=== PATIENT | female | born 1995 | race Caucasian/White ===

== ENCOUNTER 2018-04-10 17:52 | Inpatient (IN) | payer OTHER, SELFPAY ==
--- OUTSIDE RECORDS SUMMARY | 2018-04-10 17:54 | XMS REPORT ---
:1995 Author Organization [facility] Address [address] [place] [address] [address]. [address] [place] [address] Care Team Providers Name Role Phone Unavailable Unavailable Unavailable Problems This patient has no known problems. Allergies, Adverse Reactions, Alerts This patient has no known allergies or adverse reactions. Medications This patient has no known medications.
[2018-04-10] MEDS ORDERED: NA CHLORIDE 0.9% 1,000 ML ONE (18:59)
[2018-04-10 19:03] LABS: Absolute Lymphocytes (CBC) 2.4 K/uL (0.7-4.9); Absolute Monocytes 0.9 K/uL (0.1-1.3); Absolute Neutrophil 13.9 K/uL (1.8-8.0); Basophils % 0.3 % (0-1.3); Eosinophils % 1.4 % (0-4.4); Hematocrit 36.7 % (36.0-45.0); Lymphocytes % 13.7 % (15.3-44.8); MPV 8.2 fL (7.6-11.3); RBC Red Blood Cell Count 4.13 M/uL (3.86-4.86)
[2018-04-10] MEDS ORDERED: FENTANYL CITR 100 MCG/2 ML ONE (19:09)
[2018-04-10 19:41] LABS: BUN Blood Urea Nitrogen 9 mg/dL (7-18); Bicarbonate 25 mmol/L (21-32); Glucose Level 100 mg/dL (74-106); HCG, Quantitative 9768 mIU/mL (1-3); Potassium 3.7 mmol/L (3.5-5.1); Sodium Level 139 mmol/L (136-145)
--- NOTE | 2018-04-10 19:44 | RAD REPORT ---
EXAM DESCRIPTION: US - OB Complete - 04/10/2018 7:28 pm CLINICAL HISTORY: Vaginal bleeding, passing blood clots, , severe pain COMPARISON: None. FINDINGS: A single cephalic presenting gestation is identified. Anatomic assessment is limited by po sitioning and maternal body habitus. No cardiac abnormality identified. Heart rate is 154 BPM. No faizan tomic abnormality confirmed. measurements are as follows: BPD:4.23 Centimeters 18 weeks 6 days HC:16.06 Centimeters 18 weeks 6 days AC:14.36 Centimeters 19 weeks 5 days HL:2.92 Centimeters 19 weeks 4 days FL:3.10 Centimeters 19 weeks 4 days The estimated gestational age (EGA) is 19 weeks 2 days with an LALITO of 09/02/2018. ratios are n ormal or within acceptable limits. The placenta is grade 0, anterior fundal in location. No low-lying or placenta previa. The amniotic fluid volume is normal. Cervical canal is 2.35 cm. Internal os appears closed with no funneling. Minimal hypoechoic material in the cervical canal may be blood products. No large clot or hematoma in the cervical canal. Maternal adnexa mostly obscured. No gross abnormality seen. . IMPRESSION: 1. Single, cephalic gestation with an EGA of 19 weeks 2 days and an LALITO of the 9. 2. No abnormalities are identifiable. Anatomic assessment was limited. ratios are normal or within acceptable limits. 3. Grade 0, anterior fundal placenta with no low-lying or placenta previa. 4. Amniotic fluid volume is normal. 5. Cervical canal is 2.35 cm in length. There is probably some hemorrhagic material in the cervical c anal but no large clot. Internal os appears closed with no funneling.
[2018-04-10 19:51] LABS: Urine Blood 2+ (NEG); Urine Glucose NEGATIVE (NEG); Urine Protein NEGATIVE (NEG)
--- NOTE | 2018-04-10 21:11 | EDPHYS ---
Physician Documentation [facility] Name: Fina Jc Age: 22 yrs Sex: Female : 1995 Arrival Date: 04/10/2018 Time: 17:54 Bed 28 Private MD: None, None ED Physician Danny Montano HPI: 04/10 20:47 This 22 yrs old Female presents to ER via Ambulatory with complaints of 18 gs wks , Abdominal Cramping, Vaginal Bleeding. 20:47 The patient presents to the emergency department with abdominal pain, of the suprapubic gs area, right lower quadrant and left lower quadrant. The estimated gestational age is 18 weeks. Previous pregnancies: in previous pregnancies patient has had. Associated signs and symptoms: Pertinent positives: vaginal bleeding. The patient has not experienced similar symptoms in the past. severe intermittent lower abdominal pain feels like contractions worse than previous labor pains. mild vaginal bleeding. 20:47 no PNC. 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 - Social history:: Smoking status: Patient uses tobacco products, smokes one-half pack cigarettes per day, Patient/guardian denies using alcohol, street drugs. - Ebola Screening: : Patient negative for fever greater than or equal to 101.5 degrees Fahrenheit, and additional compatible Ebola Virus Disease symptoms Patient denies exposure to infectious person Patient denies travel to an Ebola-affected area in the 21 days before illness onset No symptoms or risks identified at this time. ROS: 20:47 All other systems are negative. gs Exam: 20:47 Head/Face: Normocephalic, atraumatic. Eyes: Pupils equal round and reactive to light, gs extra-ocular motions intact. Lids and lashes normal. Conjunctiva and sclera are non-icteric and not injected. Cornea within normal limits. Periorbital areas with no swelling, redness, or edema. ENT: Nares patent. No nasal discharge, no septal abnormalities noted. Tympanic membranes are normal and external auditory canals are clear. Oropharynx with no redness, swelling, or masses, exudates, or evidence of obstruction, uvula midline. Mucous membranes moist. Neck: Trachea midline, no thyromegaly or masses palpated, and no cervical lymphadenopathy. Supple, full range of motion without nuchal rigidity, or vertebral point tenderness. No Meningismus. Chest/axilla: Normal chest wall appearance and motion. Nontender with no deformity. No lesions are appreciated. Cardiovascular: Regular rate and rhythm with a normal S1 and S2. No gallops, murmurs, or rubs. Normal PMI, no JVD. No pulse deficits. Respiratory: Lungs have equal breath sounds bilaterally, clear to auscultation and percussion. No rales, rhonchi or wheezes noted. No increased work of breathing, no retractions or nasal flaring. 20:47 Back: No spinal tenderness. No costovertebral tenderness. Full range of motion. Skin: Warm, dry with normal turgor. Normal color with no rashes, no lesions, and no evidence of cellulitis. MS/ Extremity: Pulses equal, no cyanosis. Neurovascular intact. Full, normal range of motion. Neuro: Awake and alert, GCS 15, oriented to person, place, time, and situation. Cranial nerves II-XII grossly intact. Motor strength 5/5 in all extremities. Sensory grossly intact. Cerebellar exam normal. Normal gait. 20:47 Constitutional: The patient appears alert, awake, in obvious distress, severely distressed. 20:47 Abdomen/GI: Palpation: moderate abdominal tenderness, in the suprapubic area, right lower quadrant and left lower quadrant, rebound tenderness, is not appreciated. 20:47 : Pelvic Exam: the exam is deferred, externally dora exsanguinating bleeding. pt states has been bleeding for 2 weeks, pt in distress and will hold exam until OB-Section Beamer comes to examine pt.. Vital Signs: 18:03 BP 141 / 71; Pulse 94; Resp 16; Temp 98.2; Pulse Ox 99% on R/A; Weight 136.08 kg; ch Height 5 ft. 7 in. (170.18 cm); Pain 10/10; 19:07 BP 138 / 73; Pulse 98; Resp 19; Pulse Ox 100% on R/A; ca1 20:00 BP 113 / 78; Pulse 94; Resp 19; Pulse Ox 99% on R/A; ca1 20:45 BP 113 / 78; Pulse 112; Resp 19; Pulse Ox 97% on R/A; ca1 18:03 Body Mass Index 46.99 (136.08 kg, 170.18 cm) ch MDM: 18:48 Patient medically screened. gs 20:47 Differential diagnosis: [facility], delivery of , inevitable Ab. Data gs reviewed: vital signs, nurses notes. Response to treatment: There is no appreciated change of the patient's symptoms at this time. Physician consultation: Parminder Sanchez MD and will see patient in ED. ED course: dr sanchez was concerned about giving pt pain medication prior to having diagnosis, pt was in tremendous pain and could not get pt to have US or try to reliable exam unless gave pain medication, In view of the patients severe pain episodes, lack of severe bleeding, US results felt dr sanchez was most appropriate to do exam. 04/10 18:32 Order name: Urine Dipstick--Ancillary (enter results); Complete Time: 19:59 04/10 18:32 Order name: Urine --Ancillary (enter results); Complete Time: 19:59 04/10 18:49 Order name: Quantitative Hcg; Complete Time: 19:59 04/10 18:49 Order name: Abo/rh Typing 04/10 18:49 Order name: Basic Metabolic Panel; Complete Time: 19:59 04/10 18:49 Order name: CBC with Diff; Complete Time: 19:59 04/10 18:49 Order name: US OB Complete; Complete Time: 19:59 04/10 18:49 Order name: IV Saline Lock; Complete Time: 18:51 04/10 18:49 Order name: Labs collected and sent; Complete Time: 18:51 04/10 20:22 Order name: ABO/RH no charge; Complete Time: 20:31 EDMS 04/10 21:12 Order name: Type and Screen EDMD 04/10 18:49 Order name: NPO; Complete Time: 18:51 04/10 18:49 Order name: Urine Dipstick-Ancillary (obtain specimen); Complete Time: 18:51 gs Administered Medications: 18:50 Drug: NS 0.9% 1000 ml Route: IV; Rate: 125 ml/hr; Site: left antecubital; ca1 21:00 Follow up: IV Status: Infusion continued upon admission ca1 19:35 Drug: fentaNYL (PF) 25 mcg Route: IVP; Site: left antecubital; ca1 20:05 Follow up: Response: No adverse reaction; Pain is unchanged, physician notified ca1 20:17 Drug: fentaNYL (PF) 25 mcg Route: IVP; Site: left antecubital; ca1 20:50 Follow up: Response: No adverse reaction; Pain is unchanged, physician notified ca1 Disposition: 04/10/18 21:09 Hospitalization ordered by Parminder Sanchez for Inpatient Admission. Preliminary diagnosis is Threatened . - [facility]. - Status is Inpatient Admission. ca1 - Condition is Serious. - Problem is new. - Symptoms are unchanged. UTI on Admission? No Signatures: Dispatcher [employer] EDMS Valerie Ley, RN RN Alison Shetty RN RN Danny Montano MD MD Acob, Bere RN RN ca1 Corrections: (The following items were deleted from the chart) 21:14 21:09 Hospitalization Ordered by Parminder Sanchez MD for Inpatient Admission. Preliminary diagnosis is Threatened . Bed [facility]. Status is Inpatient Admission. Condition is Serious. Problem is new. Symptoms are unchanged. UTI on Admission? No. 21:19 21:14 04/10/2018 21:09 Hospitalization Ordered by Parminder Sanchez MD for Inpatient ca1 Admission. Preliminary diagnosis is Threatened . Bed requested [facility]. Status is Inpatient Admission. Condition is Serious. Problem is new. Symptoms are unchanged. UTI on Admission? No. fc
--- NOTE | 2018-04-10 21:11 | ER ---
Nurse's Notes [facility] Name: Fina Jc Age: 22 yrs Sex: Female : 1995 Arrival Date: 04/10/2018 Time: 17:54 Bed 28 Private MD: None, None Diagnosis: Threatened Presentation: 04/10 18:01 Presenting complaint: Patient states: vaginal bleeding, cramping, started at 1900, ch today is worse. cramps are every 1.5min, last about 30 seconds. passing large clots. no warp starter has been seen for this . Transition of care: patient was not received from another setting of care. Onset of symptoms was April 09, 2018 at 19:00. Risk Assessment: Do you want to hurt yourself or someone else? Patient reports no desire to harm self or others. Initial Sepsis Screen: Does the patient meet any 2 criteria? No. Patient's initial sepsis screen is negative. Does the patient have a suspected source of infection? No. Patient's initial sepsis screen is negative. Note lmp 11/23/17. Care prior to arrival: None. 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 - Social history:: Smoking status: Patient uses tobacco products, smokes one-half pack cigarettes per day, Patient/guardian denies using alcohol, street drugs. - Ebola Screening: : Patient negative for fever greater than or equal to 101.5 degrees Fahrenheit, and additional compatible Ebola Virus Disease symptoms Patient denies exposure to infectious person Patient denies travel to an Ebola-affected area in the 21 days before illness onset No symptoms or risks identified at this time. Screenin:05 Abuse screen: Denies threats or abuse. Denies injuries from another. Nutritional ca1 screening: No deficits noted. Tuberculosis screening: No symptoms or risk factors identified. Fall Risk None identified. Assessment: 18:05 General: Appears in no apparent distress. uncomfortable, ill, Behavior is calm, ca1 cooperative, appropriate for age. Pain: Complains of pain in suprapubic area, right lower quadrant and left lower quadrant Pain currently is 10 out of 10 on a pain scale. Quality of pain is described as crampy, Pain began 1 day ago. Is intermittent, lasting a few minutes. Noted to be grimacing, guarding, moaning. Neuro: Level of Consciousness is awake, alert, obeys commands, Oriented to person, place, time, situation. Cardiovascular: Heart tones S1 S2 present Capillary refill < 3 seconds Patient's skin is warm and dry. Respiratory: Airway is patent Respiratory effort is even, unlabored, Respiratory pattern is regular, symmetrical, Breath sounds are clear bilaterally. GI: Abdomen is round non-distended, Bowel sounds present X 4 quads. Abd is soft X 4 quads Abdomen is tender to palpation in suprapubic area, right lower quadrant and left lower quadrant Reports lower abdominal pain, cramping. : Urine is clear, Reports vaginal bleeding that is bright red, with clots. EENT: No signs and/or symptoms were reported regarding the EENT system. Derm: No signs and/or symptoms reported regarding the dermatologic system. Musculoskeletal: Circulation, motion, and sensation intact. Capillary refill < 3 seconds. 19:00 Reassessment: Patient appears in no apparent distress at this time. Patient and/or ca1 family updated on plan of care and expected duration. Pain level reassessed. Patient is alert, oriented x 3, equal unlabored respirations, skin warm/dry/pink. 20:00 Reassessment: Patient appears in no apparent distress at this time. Patient and/or ca1 family updated on plan of care and expected duration. Pain level reassessed. Patient is alert, oriented x 3, equal unlabored respirations, skin warm/dry/pink. 20:45 Reassessment: Patient appears in no apparent distress at this time. Patient is alert, ca1 oriented x 3, equal unlabored respirations, skin warm/dry/pink. L\T\D doctor at bedside. Patient states symptoms have not improved. Vital Signs: 18:03 BP 141 / 71; Pulse 94; Resp 16; Temp 98.2; Pulse Ox 99% on R/A; Weight 136.08 kg; ch Height 5 ft. 7 in. (170.18 cm); Pain 10/10; 19:07 BP 138 / 73; Pulse 98; Resp 19; Pulse Ox 100% on R/A; ca1 20:00 BP 113 / 78; Pulse 94; Resp 19; Pulse Ox 99% on R/A; ca1 20:45 BP 113 / 78; Pulse 112; Resp 19; Pulse Ox 97% on R/A; ca1 18:03 Body Mass Index 46.99 (136.08 kg, 170.18 cm) ED Course: 17:54 Patient arrived in ED. mr 17:55 None, None is Private Physician. mr 18:02 Triage completed. ch 18:03 Arm band placed on left wrist. Patient placed in an exam room, on a stretcher. ch 18:05 Patient has correct armband on for positive identification. Placed in gown. Bed in low ca1 position. Call light in reach. Side rails up X 1. Pulse ox on. NIBP on. Warm blanket given. 18:20 Inserted saline lock: 20 gauge in left antecubital area, using aseptic technique. Blood ca1 collected. 18:32 Danny Montano MD is Attending Physician. gs 18:36 Bere German RN is Primary Nurse. ca1 19:28 Ultrasound completed. Patient tolerated poorly. Patient moved back from ultrasound. cy 19:29 US OB Complete In Process Unspecified. EDMS 21:00 No provider procedures requiring assistance completed. ca1 21:00 Patient admitted, IV remains in place. ca1 21:09 Parminder Bertrand MD is Hospitalizing Provider. gs Administered Medications: 18:50 Drug: NS 0.9% 1000 ml Route: IV; Rate: 125 ml/hr; Site: left antecubital; ca1 21:00 Follow up: IV Status: Infusion continued upon admission ca1 19:35 Drug: fentaNYL (PF) 25 mcg Route: IVP; Site: left antecubital; ca1 20:05 Follow up: Response: No adverse reaction; Pain is unchanged, physician notified ca1 20:17 Drug: fentaNYL (PF) 25 mcg Route: IVP; Site: left antecubital; ca1 20:50 Follow up: Response: No adverse reaction; Pain is unchanged, physician notified ca1 Outcome: 21:00 Admitted to L \T\ D, accompanied by nurse, accompanied by tech, family with patient, via ca1 stretcher, room 270, with chart, Report called to Adrianne Alva RN 21:00 Condition: stable 21:00 Instructed on the need for admit. 21:09 Decision to Hospitalize by Provider. randy 21:19 Patient left the ED. ca1 Signatures: Dispatcher [employer] Valerie Arvizu, Vita Hickman RN, ch, Gregory, MD MD gs Yong, Chheannith cy Acob, Cheryl, RN RN ca1
[2018-04-10] MEDS ORDERED: Ringers Lactate 1,000 ML IV SCH (21:25)
[2018-04-10] MEDS ORDERED: PROMETHAZINE 25 MG/ML VIAL IV ONE (21:25)
[2018-04-10] MEDS ORDERED: BUTORPHANOL 1 MG/ML INJ IV ONE (21:25)
[2018-04-10 21:29] VITALS: O2SAT 97
[2018-04-10] MEDS ORDERED: BUTORPHANOL 1 MG/ML INJ ONE (21:31)
[2018-04-10] MEDS ORDERED: PROMETHAZINE 25 MG/ML VIAL ONE (21:31)
[2018-04-10] MEDS ORDERED: Ringers Lactate 1,000 ML IV ONE (21:32)
[2018-04-10] MEDS ORDERED: OXYTOCIN/LR 20 UNIT/1,000 ML BAG IV SCH ×2 (21:40→23:00)
[2018-04-10] MEDS ORDERED: METHYLERGONOVINE 0.2MG/ML AMP IM ONE (21:42)
[2018-04-10] MEDS ORDERED: CARBOPROST TROME 250 MCG/ML IM ONE (21:42)
[2018-04-10] MEDS ORDERED: OXYTOCIN/LR 20 UNIT/1,000 ML BAG IV ONE (21:42)
[2018-04-10] MEDS ORDERED: LIDOCAINE 1% MPF 30 ML VIAL ONE (21:44)
[2018-04-10] MEDS ORDERED: METHYLERGONOVINE 0.2MG/ML AMP IM PRN (22:18)
[2018-04-10] MEDS ORDERED: IBUPROFEN 200 MG TAB PO PRN (22:18)
[2018-04-10] MEDS ORDERED: METHYLERGONOVINE 0.2 MG TAB PO PRN (22:18)
[2018-04-10] MEDS ORDERED: CARBOPROST TROME 250 MCG/ML IM PRN (22:18)
[2018-04-10] MEDS ORDERED: ACETAMINOPHEN 500 MG TAB PO PRN (22:18)
--- NOTE | 2018-04-11 01:47 | PREOPHP ---
Date of Admission: 04/10/2018 History Of Present Illness: Ms. Jc is a 22-year-old female, 4, para 0-2-1-2, wit h a history of very irregular menses. She did not realize that she was , had started bleedin g about 2 weeks ago and was spotting since that time, had little heavier bleeding yesterday including passing some clots and began having what felt like menstrual or labor pains to her. They got progre ssively worse over the last 24 hours. She presents to our emergency room for evaluation this evening . Emergency room confirmed , ultrasound seeming to show approximately 19-week con sistent with last normal menstrual period by her history of approximately 18-plus weeks. She denies gush of fluid. Past Medical History: Includes 2 prior sections done at 36 weeks gestation, labor w ith failure to progress in labor with her first one, second one was repeat when she went into labor a t 36 weeks gestation. She has also had a D and C because of miscarriage. She has also had her bladd er gallbladder removed. Medications: On no medications on a regular basis. Allergies: HAS NO KNOWN ALLERGIES. Family History: Significant for multiple family members with breast cancer including her mother with premenopausal breast cancer and Ms. Jc is BRCA gene positive by her mother's history. Review of Systems: She reports no recent cough, cold, fever, or chills. No recent nausea or vomiting. She denies any b reast knots or lumps. She denies any bowel or bladder issues or vaginal discharge problems. Physical Examination: General: Reveals morbidly obese female. Neck: Supple without adenopathy or thyromegaly. Lungs: Clear. Cardiac: Regular rate and rhythm without murmurs. Breasts: Not examined. Abdomen: She is just complaining of lower abdominal discomfort. No obvious masses noted, but with t he patient's size abdominal examination is really not very useful. Pelvic Exam: Lower uterine segment is bulging. Cervix dilated 1+ cm. Extremities: No cyanosis, clubbing, or edema. Lab Work: Includes admission hemoglobin and hematocrit of 12.2 and 36.7. She has A positive blood t ype. Impression: I believe the patient is in process of abrupt pain and imminent delivery of a previable fetus. We will transfer her to Labor and Delivery for management. MPG/MODL Voice ID: [id number]
[2018-04-11 06:15] LABS: Absolute Lymphocytes (CBC) 2.6 K/uL (0.7-4.9); Absolute Monocytes 0.9 K/uL (0.1-1.3); Basophils % 0.2 % (0-1.3); Hematocrit 32.9 % (36.0-45.0); Lymphocytes % 15.7 % (15.3-44.8); MPV 7.9 fL (7.6-11.3); Monocytes % 5.3 % (3.3-12.3); RBC Red Blood Cell Count 3.77 M/uL (3.86-4.86)
[2018-04-11 07:45] VITALS: BMI 47.0
[2018-04-11] MEDS ORDERED: INFLUENZA VACCINE (for 3y+) 0.5 ML DOSE IMVAC ONE (08:00)
[2018-04-11] MEDS ORDERED: METHYLERGONOVINE 0.2MG/ML AMP IM ONE (08:07)
[2018-04-11] MEDS ORDERED: PROMETHAZINE 25 MG/ML VIAL IM PRN (08:08)
--- NOTE | 2018-04-11 08:44 | OP ---
Surgeon: Parminder Bertrand MD Ms. Jc is approximately 18 plus weeks gestation with history of very irregular menses, thought to be in the process of abrupting and delivering a previable fetus. After she had spontaneous rupture o f membrane, she quickly proceeded to deliver a 280 g fetus with only some muscle twitching with extre me bruising of the vertex. Cord was clamped and cut. Fetus placed on the table in a blue towe l and handed to the nurse. The patient was given dilute solution of Pitocin in her IV and given 0.2 mg IM of Methergine. Approximately 10-15 minutes after spontaneous delivery of the fetus, she sponta neously delivered the placenta. Further bleeding was not noted. LONDON/CARINA Voice ID: [id number] Report ID: [id number]
[2018-04-11 09:00] VITALS: BP 131/65; TEMP 97.9
== END 2018-04-11 11:40 | disposition home or self-care (01) | DRG 807 ==
LOC: ER 17:52 → 2ND-WC 21:32
PROVIDERS: ADMIT Specialist; ATTEND Specialist
PROC: 10E0XZZ Delivery of Products of Conception, External Approach (ICD-10-PCS; principal; 2018-04-11)
DX: O36.4XX0 Maternal care for intrauterine death, not applicable or unspecified (principal); Z37.1 Single stillbirth; Z3A.18 18 weeks gestation of pregnancy
CPT/HCPCS: 36415; 76805; 80048; 81003; 81025; 84702; 85025; 86850; 86900; 86901; 88305; 96361; 96374; 99285; J0595; J2210; J2550; J2590; J3010; J7030

== ENCOUNTER 2023-05-17 08:34 | Day surgery (SDC) | payer OTHER ==
--- NOTE | 2023-05-16 15:42 | RAD REPORT ---
EXAM DESCRIPTION: RAD - Chest Pa And Lat (2 Views) - 05/16/2023 3:28 pm CLINICAL HISTORY: Pre op pending possible appy Chest pain. COMPARISON: CHEST PA AND LAT 2 VIEW dated 05/02/2012 FINDINGS: The lungs are clear. The heart is normal in size. No displaced fractures. IMPRESSION: No acute or concerning finding suspected.
[2023-05-16 16:46] LABS: Absolute Basophils 0.1 K/uL (0-0.5); Absolute Eosinophils 0.4 K/uL (0-0.5); Absolute Lymphocytes (CBC) 2.8 K/uL (0.7-4.9); Absolute Monocytes 0.7 K/uL (0.1-1.3); Absolute Neutrophil 6.9 K/uL (1.8-8.0); Basophils % 0.5 % (0-1.3); Hematocrit 38.8 % (36.0-45.0); Hemoglobin 13.4 g/dL (12.0-15.0); Lymphocytes % 25.8 % (15.3-44.8); MCH 31.4 pg (27.0-35.0); MCHC 34.6 g/dL (32.0-36.0); MCV 90.7 fL (80-100); MPV 7.3 fL (7.6-11.3); Monocytes % 6.5 % (3.3-12.3); Neutrophils % 63.2 % (41.7-73.7); Platelets 345 thou/uL (152-406); RBC Red Blood Cell Count 4.28 M/uL (3.86-4.86); Red Cell Distribution Width 12.8 % (12.1-15.2)
[2023-05-16 16:57] LABS: Anion Gap 6.7 mEq/L (5.0-15.0); Potassium 3.7 mEq/L (3.5-5.1)
[2023-05-17] MEDS ORDERED: dexAMETHasone 10 MG/ML VIAL ONE (08:42)
[2023-05-17] MEDS ORDERED: LIDOCAINE 1% MPF 5 ML VIAL ONE (08:42)
[2023-05-17] MEDS ORDERED: ROCURONIUM 50 MG/5 ML VIAL IV ONE (08:42)
[2023-05-17] MEDS ORDERED: MIDAZOLAM HCL 2 MG/2 ML INJ ONE (08:42)
[2023-05-17] MEDS ORDERED: FENTANYL CITR 100 MCG/2 ML ONE (08:42)
[2023-05-17] MEDS ORDERED: propofoL 200 MG/20 ML VIAL IV ONE (08:42)
[2023-05-17] MEDS ORDERED: KETOROLAC 30 MG/ML INJ ONE (08:42)
[2023-05-17] MEDS ORDERED: ONDANSETRON 4 MG/2 ML VIAL ONE (08:42)
[2023-05-17] MEDS: Ringers Lactate 1,000 ML IV ONE (09:00)
[2023-05-17] MEDS: CEFAZOLIN SODIUM 1 GM/VIAL ONE (09:55)
--- NOTE | 2023-05-17 10:12 | P.BOP ---
Preoperative diagnosis: abdominal pain, nausea ,vomit, appendicitis, morbid obesity Postoperative diagnosis: same plus right ovarian cyst Primary procedure: Diagnostic laparoscopy, laparoscopic appendectomy Estimated blood loss: <10cc Specimen: appendix Findings: assymetrical in shape and color appendix. Multiple translucent ovarian cyst Anesthesia: General Complications: None Transferred to: Recovery Room Condition: Good
[2023-05-17] MEDS ORDERED: MORPHINE 10 MG/ML VIAL ONE (11:04)
[2023-05-17 11:26] VITALS: TEMP 97
[2023-05-17] MEDS: HYDROMORPHONE HCL 1 MG/ML INJ ONE (11:54)
[2023-05-17] MEDS: FENTANYL CITR 100 MCG/2 ML ONE (12:03)
[2023-05-17] MEDS: HYDROCODONE/APAP 10/325 TAB ONE (13:35)
[2023-05-17 15:07] VITALS: BP 140/66; O2SAT 98
--- NOTE | 2023-05-17 23:00 | OP ---
Date of Procedure: 05/17/2023 Surgeon: Lauro Steele MD Preoperative Diagnoses: Abdominal pain, nausea, vomiting, appendicitis, morbid obesity. Postoperative Diagnoses: Abdominal pain, nausea, vomiting, appendicitis, morbid obesity, right ovari an cyst. Procedures: Diagnostic laparoscopy, laparoscopic appendectomy. Estimated Blood Loss: Less than 10 cc. Specimen: Appendix. Finding: Asymmetrical in shape and color appendix consistent with appendicitis that was removed. We also saw multiple ovarian cysts on the right side. They looked translucent, but there is no bleedin g coming from that area. The left ovary is still present. No masses seen in the area of the pelvis. No hernias seen in the anterior abdominal wall. There are some adhesions from previous surgeries. No intestinal kink and involving those. The area of the stomach is somehow limited due to the prese nce of a scar tissue present from the epigastric incision patient had in the past. Ascending, transv erse, and descending colon with no masses seen. Small bowel with no masses seen. Indications: This is a case of a 20-year-old patient with multiple visits to the ER due to abdominal pain, mainly in the periumbilical and right lower quadrant. The patient was seen in the ER at [facility] and diagnosed at one point appendicitis. She did not want to wait. They wanted to keep her overnight at [facility]. She decided to go home, continued with the same discomfort. CAT scan shows a large appendix and ruled out appendicitis and because the patient is having some pain, she came to m y office for options. She was advised to see her primary doctor, her marketing proposal coordinator, and her gastroent erologist. At the same time, we have diagnosis of acute appendicitis with lower abdominal pain based on imaging. So, she want to exercise the option of diagnostic laparoscopy, possible open appendecto my with benefits, alternatives, and risks including, but not limited to infection, bleeding, damage t o adjacent structures, anesthesia complication, negative exploration, MD, and even . She also u nderstand, may be a negative appendix. She understand this may not relieve the symptoms. She might need more than one surgical intervention. She understood, signed a consent. Description Of Procedure: The patient was brought to the operating room, placed in supine position. Anesthesia was done without complication. Abdominal area was prepped and draped in sterile fashion. The patient has multiple incisions on the abdomen. She is morbidly obese. She has periumbilical a nd she also has on the supraumbilical ventral region. The entire upper abdomen big incision. She cl aims that was from a previous . The location is somehow unusual, but she looks very certain about it. The abdomen was prepped and draped in sterile fashion. A time-out was call followed by s harp incision in the infraumbilical region. Incision was carried down to fascia, which was opened un tray direct vision. Peritoneum was encountered, opened under direct vision. Vicryl #1 placed inside the fascia. Bebe trocar was carefully introduced. No bleeding was obtained. After that, we took a look at the abdomen. The lower abdomen does not look that bad, although obviously the findings in the appendix and the ovary, but we placed 3 more trocars, 5 mm each one of them. This will help us t o do the diagnostic lap, 1 suprapubic to the mid left quadrant and left lower quadrant. With those, we were able to have the findings that we discussed above. We did not see any hernias. No endometri osis. We have ovarian cyst. We have abnormal appendix, but no evidence of any tumors there. We hav e some scattered adhesions from the previous surgery, but not involving the kinked bowel, so there is some omentum attached to the anterior abdominal wall. Ascending, transverse, and descending colon s ee no extraluminal masses and small bowel with no extraluminal masses. The area of the stomach someh ow limit due to the presence of omental adhesions. Since the patient's pain is in the right lower qu adrant, we proceeded to turn our attention to the lower pelvis and the uterus shows no masses at leas t that we can see through and then ovarian cyst shows multiple translucent cysts in the right side. The left ovary still present with no masses seen. At that moment, we proceeded to look at the area o f the appendix, looks asymmetrical in shape and color. So, I believe it is safe to remove the append ix at this moment, so we created a window in the base of appendix, transected that with Endo ERAN 45 m m nonvascular, and then the mesoappendix with an Endo-ERAN 45 mm vascular, and then further hemostasis was obtained with the help of 5 mm clips. Appendix was removed from abdominal cavity using an EndoC atch through the umbilical incision. Area was irrigated and suctioned once again. No other findings at this moment. So at that moment, I proceeded to remove the trocars under direct vision, deflated pneumoperitoneum, closed the fascia using #1 Vicryl, irrigated subcutaneous tissue, closed with 3-0 c hromic, and skin with hector. Sponge count, instrument counts were correct. The patient tolerated the procedure well. The patient was sent to recovery in stable condition. DANIEL/CARINA Voice ID: [id number] Report ID: [id number]
--- NOTE | 2023-05-18 08:23 | DS ---
Date of Discharge: 05/17/2023 Diagnoses: Abdominal pain, nausea, vomiting, appendicitis, morbid obesity, right ovarian cyst. Procedures: Diagnostic laparoscopy, laparoscopic appendectomy. Disposition: Home. Activity: As tolerated. No heavy lifting. Condition: Stable. Followup: In my office in 1 week. Call for appointment [phone]. Keep area dry for 48 hours, then may shower. Then, may clean the hector with soap and water and put Neosporin and a Band-Aid. Patient is advised also the importance of losing weight. DANIEL/CARINA Voice ID: [id number] Report ID: [id number]
== END 2023-05-17 14:08 | disposition home or self-care (01) ==
LOC: OR 08:34
PROVIDERS: ATTEND Surgery
PROC: 0DTJ4ZZ Resection of Appendix, Percutaneous Endoscopic Approach (ICD-10-PCS; principal; 2023-05-17 10:00)
DX: K37 Unspecified appendicitis (principal); R10.31 Right lower quadrant pain; R11.2 Nausea with vomiting, unspecified; E66.01 Morbid (severe) obesity due to excess calories; N83.201 Unspecified ovarian cyst, right side; Z68.43 Body mass index [BMI] 50.0-59.9, adult
CPT/HCPCS: 44970; 85025; 80048; 36415; 84703; 88304; 71046; J2704; J2001; J2250; J3010 ×2; J1100; J1170; J2405; J7120; J0690